=== PATIENT | female | born 1995 | race African-American/Black ===

== ENCOUNTER 2022-07-07 14:01 | Emergency (ER) | payer SELFPAY ==
[~2022-07-07] VITALS: Ht 162.6 cm; Wt 152.9 kg
[2022-07-07] MEDS ORDERED: HYDROCODONE/APAP 5MG-325MG TAB PO ONE (14:45)
[2022-07-07 16:03] LABS: CLARITY,URINE SL CLOUDY (CLEAR); COLOR,URINE STRAW (YELLOW); KETONES,URINE NEGATIVE (NEGATIVE); LEUKOCYTE ESTERASE ,URINE MODERATE (NEGATIVE); NITRITE,URINE NEGATIVE (NEGATIVE); PROTEIN,URINE DIPSTICK NEGATIVE (NEGATIVE); URINE UROBILINOGEN 0.2 mg/dL (0.2 - 1)
[2022-07-07 16:12] LABS: BACTERIA,URINE MODERATE /HPF; EPITHELIAL CELLS,URINE MODERATE /LPF; RBC,URINE 0-5 /HPF (0-5)
[2022-07-07] MEDS ORDERED: ONDANSETRON ODT4 MG PO (16:26)
[2022-07-07] MEDS ORDERED: IBUPROFEN600 MG PO (16:26)
== END 2022-07-07 16:40 | disposition home or self-care (01) ==
LOC: ER 14:21
DX: R10.2 Pelvic and perineal pain (principal); N80.9 Endometriosis, unspecified; N83.201 Unspecified ovarian cyst, right side
CPT/HCPCS: 76830; 76856; 81001; 81025; 99283